=== PATIENT | female | born 1985 | race American Indian/Alaskan Native ===

== ENCOUNTER 2018-10-30 00:55 | Emergency (ER) | payer MEDICAID, OTHER ==
[2018-10-30 01:37] LABS: Bilirubin,Urine NEG (Negative); Blood,Urine NEG (Negative); Color,Urine Yellow (Yellow); Mucus,Urine FEW /HPF; Protein,Urine <15 mg/dL mg/dL (Negative); Urobilinogen,Urine < 2.0 mg/dL (<2.0)
[2018-10-30 01:49] LABS: Hematocrit 38.3 % (30.3-42.9); Hemoglobin 12.7 gm/dl (10.1-14.3); Mean Corpuscular HGB Conc 33 % (30-34); Mean Corpuscular Volume 94 fl (79-97); Platelet Count 175 K/mm3 (140-440); Red Blood Count 4.07 M/mm3 (3.65-5.03); Red Cell Distribution Width 14.5 % (13.2-15.2)
[2018-10-30 02:12] LABS: Alanine Aminotransferase 19 units/L (7-56); Albumin 4.1 g/dL (3.9-5); BUN/Creatinine Ratio 14; Blood Urea Nitrogen 7 mg/dL (7-17); Calcium 8.6 mg/dL (8.4-10.2); Hemolysis Index 33
[2018-10-30] MEDS ORDERED: DECADRON IM ONE (02:46)
[2018-10-30] MEDS ORDERED: REGLAN PO ONE (02:46)
[2018-10-30] MEDS ORDERED: TYLENOL PO ONE (02:46)
[2018-10-30] MEDS ORDERED: BENADRYL PO ONE (02:46)
--- NOTE | 2018-10-30 03:03 | Emergency Department Report ---
ED General Adult HPI - General Chief complaint: Abdominal Pain Stated complaint: LEFT SIDE PAIN Time Seen by Provider: 10/30/18 02:19 Source: patient Mode of arrival: Ambulatory Limitations: No Limitations - History of Present Illness Initial comments: Patient is a 33-year-old female who presents for a left temporal headache rated at 6/10 patient has history of frequent headaches in location same intensity patient denies fevers no chills no nausea vomiting no photophobia having intermittent for the last 3 days patient presented to triage abdominal pain and now states she has headache no abdominal pain plan we'll treat for headache and evaluation including neuro exam and dispo pt appropriately Onset/Timin -: days(s) Location: head (left temporal ) Radiation: non-radiation Severity scale (0 -10): 6 Quality: aching Consistency: constant Improves with: none Worsens with: none Associated Symptoms: headaches Treatments Prior to Arrival: none - Related Data Previous Rx's Medication Instructions Recorded Last Taken Type Cyclobenzaprine HCl [Flexeril 5 MG 5 mg PO TID #20 tab 12/11/15 Unknown Rx TAB] Ibuprofen [Motrin 800 MG tab] 800 mg PO Q8HR PRN #30 tablet 12/11/15 Unknown Rx Acetaminophen/Codeine [Tylenol 1 tab PO TID PRN #15 tab 01/16/16 Unknown Rx /Codeine # 3 tab] Ofloxacin 0.3% [Floxin 0.3% Otic] 10 drops OT QDAY #1 bottle 01/16/16 Unknown Rx Acetaminophen [Acetaminophen TAB] 1,000 mg PO Q6HR PRN #30 tablet 10/30/18 Unknown Rx Metoclopramide [Reglan] 10 mg PO Q6H PRN #30 tablet 10/30/18 Unknown Rx diphenhydrAMINE [Benadryl CAP] 25 mg PO Q6HR PRN #30 capsule 10/30/18 Unknown Rx Allergies Allergy/AdvReac Type Severity Reaction Status Date / Time No Known Allergies Allergy Verified 12/11/15 08:10 ED Review of Systems ROS: Stated complaint: LEFT SIDE PAIN Other details as noted in HPI Constitutional: denies: chills, fever Eyes: denies: eye pain, eye discharge, vision change ENT: denies: ear pain, throat pain, dental pain, hearing loss, epistaxis, congestion Respiratory: denies: cough, shortness of breath, wheezing Cardiovascular: denies: chest pain, palpitations Endocrine: no symptoms reported Gastrointestinal: denies: abdominal pain, nausea, diarrhea Genitourinary: denies: urgency, dysuria, frequency, hematuria, discharge Musculoskeletal: denies: back pain, joint swelling, arthralgia Skin: denies: rash, lesions Neurological: headache. denies: weakness, numbness, paresthesias, confusion, abnormal gait, vertigo Psychiatric: denies: anxiety, depression Hematological/Lymphatic: denies: easy bleeding, easy bruising ED Past Medical Hx - Past Medical History Previous Medical History?: Yes Additional medical history: unable to speak as per pt - Surgical History Past Surgical History?: Yes Additional Surgical History: x 4 - Social History Smoking Status: Never Smoker Substance Use Type: None - Medications Home Medications: Home Medications Medication Instructions Recorded Confirmed Last Taken Type Cyclobenzaprine HCl [Flexeril 5 MG 5 mg PO TID #20 tab 12/11/15 Unknown Rx TAB] Ibuprofen [Motrin 800 MG tab] 800 mg PO Q8HR PRN #30 tablet 12/11/15 Unknown Rx Acetaminophen/Codeine [Tylenol 1 tab PO TID PRN #15 tab 01/16/16 Unknown Rx /Codeine # 3 tab] Ofloxacin 0.3% [Floxin 0.3% Otic] 10 drops OT QDAY #1 bottle 01/16/16 Unknown Rx Acetaminophen [Acetaminophen TAB] 1,000 mg PO Q6HR PRN #30 tablet 10/30/18 Unknown Rx Metoclopramide [Reglan] 10 mg PO Q6H PRN #30 tablet 10/30/18 Unknown Rx diphenhydrAMINE [Benadryl CAP] 25 mg PO Q6HR PRN #30 capsule 10/30/18 Unknown Rx ED Physical Exam - General Limitations: No Limitations General appearance: alert, in no apparent distress - Head Head exam: Present: atraumatic, normocephalic - Eye Eye exam: Present: normal appearance, PERRL, EOMI. Absent: conjunctival injection, nystagmus, periorbital swelling, periorbital tenderness Pupils: Present: normal accommodation. Absent: unequal - ENT ENT exam: Present: normal orophraynx, mucous membranes moist, TM's normal bilaterally, normal external ear exam - Neck Neck exam: Present: normal inspection - Respiratory Respiratory exam: Present: normal lung sounds bilaterally. Absent: respiratory distress, wheezes, stridor - Cardiovascular Cardiovascular Exam: Present: regular rate, normal rhythm. Absent: systolic murmur, diastolic murmur, rubs, gallop - GI/Abdominal GI/Abdominal exam: Present: soft, normal bowel sounds. Absent: distended, tenderness, bruit, hernia - Rectal Rectal exam: Present: deferred - Extremities Exam Extremities exam: Present: normal inspection, full ROM, normal capillary refill. Absent: tenderness, pedal edema, joint swelling, calf tenderness - Back Exam Back exam: Present: normal inspection, full ROM. Absent: tenderness, CVA tenderness (R), CVA tenderness (L), muscle spasm, paraspinal tenderness, vertebral tenderness, rash noted - Neurological Exam Neurological exam: Present: alert, oriented X3, CN II-XII intact, normal gait, reflexes normal. Absent: motor sensory deficit - Expanded Neurological Exam Expanded Patient oriented to: Present: person, place, time Cranial nerves: EOM's Intact: Normal, Gag Reflex: Normal, Tongue Deviation: Normal, Nystagmus: Normal, Facial Sensation: Normal Cerebellar function: Finger to Nose: Normal, Heel to Galvan: Normal, Romberg: Normal Upper motor neuron: Jad Neglect: Normal, Pronator Drift: Normal, Babinski Sign: Normal, Sensory Extinction: Normal Motor strength exam: RUE: 5, LUE: 5, RLE: 5, LLE: 5 DTR: bicep (R): 2+, bicep (L): 2+, ankle (R): 2+, ankle (L): 2+ Best Eye Response (Maddy): (4) open spontaneously Best Motor Response ([place]): (6) obeys commands Best Verbal Response (Maddy): (5) oriented [place] Total: 15 - Psychiatric Psychiatric exam: Present: normal affect, normal mood - Skin Skin exam: Present: warm, dry, intact, normal color. Absent: rash ED Course Vital Signs 10/30/18 01:02 Temperature 99.0 F Pulse Rate 84 Respiratory 18 Rate Blood Pressure 137/87 O2 Sat by Pulse 100 Oximetry ED Medical Decision Making - Lab Data Result diagrams: 10/30/18 01:18 10/30/18 01:18 Lab Results 10/30/18 10/30/18 10/30/18 Range/Units 01:18 01:18 01:18 WBC 4.0 L (4.5-11.0) K/mm3 RBC 4.07 (3.65-5.03) M/mm3 Hgb 12.7 (10.1-14.3) gm/dl Hct 38.3 (30.3-42.9) % MCV 94 (79-97) fl MCH 31 (28-32) pg MCHC 33 (30-34) % RDW 14.5 (13.2-15.2) % Plt Count 175 (140-440) K/mm3 Sodium 135 L (137-145) mmol/L Potassium 4.1 (3.6-5.0) mmol/L Chloride 101.3 (98-107) mmol/L Carbon Dioxide 22 (22-30) mmol/L Anion Gap 16 mmol/L BUN 7 (7-17) mg/dL Creatinine 0.5 L (0.7-1.2) mg/dL Estimated GFR > 60 ml/min BUN/Creatinine Ratio 14 % Glucose 125 H (65-100) mg/dL Calcium 8.6 (8.4-10.2) mg/dL Total Bilirubin 0.40 (0.1-1.2) mg/dL AST 15 (5-40) units/L ALT 19 (7-56) units/L Alkaline Phosphatase 49 (35-129) units/L Total Protein 7.4 (6.3-8.2) g/dL Albumin 4.1 (3.9-5) g/dL Albumin/Globulin Ratio 1.2 % HCG, Qual Negative (Negative) Urine Color (Yellow) Urine Turbidity (Clear) Urine pH (5.0-7.0) Ur Specific [place] (1.003-1.030) Urine Protein (Negative) mg/dL Urine Glucose (UA) (Negative) mg/dL Urine Ketones (Negative) mg/dL Urine Blood (Negative) Urine Nitrite (Negative) Urine Bilirubin (Negative) Urine Urobilinogen (<2.0) mg/dL Ur Leukocyte Esterase (Negative) Urine WBC (Auto) (0.0-6.0) /HPF Urine RBC (Auto) (0.0-6.0) /HPF U Epithel Cells (Auto) (0-13.0) /HPF Urine Mucus /HPF 10/30/18 Range/Units Unknown WBC (4.5-11.0) K/mm3 RBC (3.65-5.03) M/mm3 Hgb (10.1-14.3) gm/dl Hct (30.3-42.9) % MCV (79-97) fl MCH (28-32) pg MCHC (30-34) % RDW (13.2-15.2) % Plt Count (140-440) K/mm3 Sodium (137-145) mmol/L Potassium (3.6-5.0) mmol/L Chloride (98-107) mmol/L Carbon Dioxide (22-30) mmol/L Anion Gap mmol/L BUN (7-17) mg/dL Creatinine (0.7-1.2) mg/dL Estimated GFR ml/min BUN/Creatinine Ratio % Glucose (65-100) mg/dL Calcium (8.4-10.2) mg/dL Total Bilirubin (0.1-1.2) mg/dL AST (5-40) units/L ALT (7-56) units/L Alkaline Phosphatase (35-129) units/L Total Protein (6.3-8.2) g/dL Albumin (3.9-5) g/dL Albumin/Globulin Ratio % HCG, Qual (Negative) Urine Color Yellow (Yellow) Urine Turbidity Clear (Clear) Urine pH 5.0 (5.0-7.0) Ur Specific [place] 1.030 (1.003-1.030) Urine Protein <15 mg/dl (Negative) mg/dL Urine Glucose (UA) Neg (Negative) mg/dL Urine Ketones Neg (Negative) mg/dL Urine Blood Neg (Negative) Urine Nitrite Neg (Negative) Urine Bilirubin Neg (Negative) Urine Urobilinogen < 2.0 (<2.0) mg/dL Ur Leukocyte Esterase Neg (Negative) Urine WBC (Auto) 1.0 (0.0-6.0) /HPF Urine RBC (Auto) 1.0 (0.0-6.0) /HPF U Epithel Cells (Auto) 8.0 (0-13.0) /HPF Urine Mucus Few /HPF - Medical Decision Making Headache is improved to 2/10 from 09/28 plan DC to home with prescription for Tylenol Benadryl Reglan patient will follow with PCP in 2-3 days return to emergency room should symptoms worsen patient verbalizes agreement and understanding of discharge plan DC to home in stable condition at this time, pt is a/o x 3 ambulatory with steady gait pt with nad at this time. Critical care attestation.: If time is entered above; I have spent that time in minutes in the direct care of this critically ill patient, excluding procedure time. ED Disposition Clinical Impression: Headache Qualifiers: Headache type: unspecified Headache chronicity pattern: acute headache Intractability: not intractable Qualified Code(s): R51 - Headache Disposition: DC-01 TO HOME OR SELFCARE Is pt being admited?: No Does the pt Need Aspirin: No Condition: Stable Instructions: Acute Headache (ED) Prescriptions: Acetaminophen [Acetaminophen TAB] 1,000 mg PO Q6HR PRN #30 tablet PRN Reason: Headache diphenhydrAMINE [Benadryl CAP] 25 mg PO Q6HR PRN #30 capsule PRN Reason: Headache Metoclopramide [Reglan] 10 mg PO Q6H PRN #30 tablet PRN Reason: Headache Referrals: [facility] [Outside] - 3-5 Days JAVIER RENDON MD [Referring] - 3-5 Days Forms: Work/School Release Form(ED) Time of Disposition: 03:10
[2018-10-30 03:56] LABS: Anisocytosis 1+; Large Platelets 1+; Ovalocytes 1+; Platelet Estimate Consistent w Auto; Total Cells Counted 100
[2018-10-30 06:06] VITALS: BP 137/88
== END 2018-10-30 04:25 | disposition home or self-care (01) ==
LOC: ED 00:55
DX: R51 Headache (principal); Z79.1 Long term (current) use of non-steroidal anti-inflammatories (NSAID); Z79.899 Other long term (current) drug therapy
CPT/HCPCS: 36415; 80053; 81001; 84703; 85007; 85025; 96372; 99283; J1100

== ENCOUNTER 2018-10-31 06:38 | Emergency (ER) | payer MEDICAID ==
[2018-10-31] MEDS ORDERED: TORADOL IM ONE (09:04)
[2018-10-31] MEDS ORDERED: DECADRON IM ONE (09:09)
--- NOTE | 2018-10-31 10:11 | Emergency Department Report ---
ED General Adult HPI - General Chief complaint: Headache Stated complaint: LEFT SIDE FACIAL PAIN Time Seen by Provider: 10/31/18 07:03 Source: patient Mode of arrival: Ambulatory Limitations: No Limitations - History of Present Illness Initial comments: 33-year-old -[place] female presents to the emergency room for left face pain since October 29. Patient denies any trauma. Patient was seen here yesterday for the same issue. Patient was prescribed medications but has only taken one dose. Patient denies any nausea vomiting she denies any trauma denies any bad teeth. Patient has a past medical history inability to speak per patient. Patient reports that this been going on for about 8 years she has been followed by a ear nose and throat provider for this. Patient has a surgical history of 4 C-sections. Location: face (left side) Severity scale (0 -10): 8 Quality: burning, aching Consistency: constant Improves with: none Worsens with: none Associated Symptoms: headaches Treatments Prior to Arrival: none - Related Data Previous Rx's Medication Instructions Recorded Last Taken Type Cyclobenzaprine HCl [Flexeril 5 MG 5 mg PO TID #20 tab 12/11/15 Unknown Rx TAB] Ibuprofen [Motrin 800 MG tab] 800 mg PO Q8HR PRN #30 tablet 12/11/15 Unknown Rx Acetaminophen/Codeine [Tylenol 1 tab PO TID PRN #15 tab 01/16/16 Unknown Rx /Codeine # 3 tab] Ofloxacin 0.3% [Floxin 0.3% Otic] 10 drops OT QDAY #1 bottle 01/16/16 Unknown Rx Acetaminophen [Acetaminophen TAB] 1,000 mg PO Q6HR PRN #30 tablet 10/30/18 Unknown Rx Metoclopramide [Reglan] 10 mg PO Q6H PRN #30 tablet 10/30/18 Unknown Rx diphenhydrAMINE [Benadryl CAP] 25 mg PO Q6HR PRN #30 capsule 10/30/18 Unknown Rx Allergies Allergy/AdvReac Type Severity Reaction Status Date / Time No Known Allergies Allergy Verified 12/11/15 08:10 ED Review of Systems ROS: Stated complaint: LEFT SIDE FACIAL PAIN Other details as noted in HPI Comment: All other systems reviewed and negative ED Past Medical Hx - Past Medical History Previous Medical History?: Yes Additional medical history: unable to speak as per pt - Surgical History Past Surgical History?: Yes Additional Surgical History: x 4 - Social History Smoking Status: Never Smoker Substance Use Type: None - Medications Home Medications: Home Medications Medication Instructions Recorded Confirmed Last Taken Type Cyclobenzaprine HCl [Flexeril 5 MG 5 mg PO TID #20 tab 12/11/15 Unknown Rx TAB] Ibuprofen [Motrin 800 MG tab] 800 mg PO Q8HR PRN #30 tablet 12/11/15 Unknown Rx Acetaminophen/Codeine [Tylenol 1 tab PO TID PRN #15 tab 01/16/16 Unknown Rx /Codeine # 3 tab] Ofloxacin 0.3% [Floxin 0.3% Otic] 10 drops OT QDAY #1 bottle 01/16/16 Unknown Rx Acetaminophen [Acetaminophen TAB] 1,000 mg PO Q6HR PRN #30 tablet 10/30/18 Unknown Rx Metoclopramide [Reglan] 10 mg PO Q6H PRN #30 tablet 10/30/18 Unknown Rx diphenhydrAMINE [Benadryl CAP] 25 mg PO Q6HR PRN #30 capsule 10/30/18 Unknown Rx ED Physical Exam - General Limitations: No Limitations General appearance: alert, in no apparent distress - Head Head exam: Present: atraumatic, other (left temporal tenderness) - ENT ENT exam: Present: normal orophraynx, mucous membranes moist - Neck Neck exam: Present: tenderness, full ROM. Absent: lymphadenopathy - Respiratory Respiratory exam: Present: normal lung sounds bilaterally. Absent: respiratory distress - Cardiovascular Cardiovascular Exam: Present: regular rate, normal rhythm. Absent: systolic murmur, diastolic murmur, rubs, gallop - Expanded Neurological Exam Expanded Speech: Present: total aphasia (chronic) Cranial nerves: EOM's Intact: Normal, Gag Reflex: Normal, Tongue Deviation: Normal, Nystagmus: Normal, Facial Sensation: Normal, Facial Palsy with Forehead Movement: Normal, Facial Palsy without Forehead Movement: Normal Cerebellar function: Finger to Nose: Normal, Heel to Galvan: Normal, Romberg: Normal Upper motor neuron: Jad Neglect: Normal, Pronator Drift: Normal, Babinski Sign: Normal, Sensory Extinction: Normal Sensory exam: Upper Extremity Light Touch: Normal, Upper Extremity Pin Prick: Normal, Upper Extremity Temperature: Normal, UE 2 Point Discrimination: Normal, Lower Extremity Light Touch: Normal, Lower Extremity Pin Prick: Normal, Lower Extremity Temperature: Normal, LE 2 Point Discrimination: Normal Motor strength exam: RUE: 5, LUE: 2/1, RLE: 5, LLE: 5 Best Eye Response ([place]addy): (4) open spontaneously Best Motor Response ([place]): (6) obeys commands Best Verbal Response (Maddy): (5) oriented [place] Total: 15 - Psychiatric Psychiatric exam: Present: normal affect, normal mood - Skin Skin exam: Present: warm, dry, intact, normal color. Absent: rash ED Course Vital Signs 10/31/18 06:48 Temperature 99 F Pulse Rate 98 H Respiratory 16 Rate Blood Pressure 131/95 O2 Sat by Pulse 98 Oximetry ED Medical Decision Making - Radiology Data Radiology results: report reviewed Patient: BERNADETTE LONG MR#: [id number] : 1985 Acct:[id number] Age/Sex: 33 / F ADM Date: 10/31/18 Loc: ED Attending Dr: Ordering Physician: JESSICA CASTILLO Date of Service: 10/31/18 Procedure(s): CT head/brain wo/w con Accession Number(s): [id number] cc: JESSICA CASTILLO CT head with and without IV contrast Coronal history: Headache. FINDINGS: No previous exams available for comparison. The brain demonstrate appropriate attenuation. There is mild asymmetry of the lateral ventricles which is felt to be developmental. No obstructing lesions are identified. There is no CT evidence of acute intracranial hemorrhage or significant mass effect at. No intracranial enhancing lesions are appreciated. The paranasal sinuses are clear. All CT scans at this location are performed using the CT dose reduction for ALARA by means of automated exposure control. IMPRESSION: Pre and postcontrast CT reveals no evidence of acute intracranial process. Signer Name: Elkin Lovell MD Signed: 10/31/2018 3:01 PM Workstation Name: [id number] Transcribed By: MR Dictated By: Elkin Lovell MD Electronically Authenticated By: Elkin Lovell MD Signed Date/Time: 10/31/18 1505 DD/ 1445 TD/TT: Patient: BERNADETTE LONG MR#: [id number] : 1985 Acct:[id number] Age/Sex: 33 / F ADM Date: 10/31/18 Loc: ED Attending Dr: Ordering Physician: JESSICA CASTILLO Date of Service: 10/31/18 Procedure(s): CT neck w con Accession Number(s): [id number] cc: JESSICA CASTILLO CT NECK WITH CONTRAST HISTORY: Left neck pain, left facial pain TECHNIQUE: Helical CT following 100 cc of IV contrast. Sagittal and coronal reformatted images. Radiation reduction by automated exposure control. COMPARISON: None. FINDINGS: The thyroid gland and salivary glands are symmetric and unremarkable. Laryngeal structures are within normal limits. Paravertebral soft tissues are normal. No evidence for inflammation, fluid collection or adenopathy. Normal vascular structures. The imaged brain is unremarkable. The bony structures are intact. The lung apices are clear. A left posterior maxillary molar dental tianna is identified. There is also periapical lucency surrounding a right maxillary molar tooth roots. Facial soft tissues are unremarkable. IMPRESSION: Essentially unremarkable CT neck with contrast. Poor dentition as described. Signer Name: Parveen Hardin Jr, MD Signed: 10/31/2018 2:59 PM Workstation Name: [id number] Transcribed By: TTR Dictated By: PARVEEN HARDIN JR, MD Electronically Authenticated By: PARVEEN HARDIN JR, MD Signed Date/Time: 10/31/181458 DD/ 51 TD/TT: - Medical Decision Making 33-year-old -[place] female presents to the emergency room for left face pain since October 29. Patient denies any trauma. Patient was seen here yesterday for the same issue. Patient was prescribed medications but has only taken one dose. Patient denies any nausea vomiting she denies any trauma denies any bad teeth. Patient has a past medical history inability to speak per patient. Patient reports that this been going on for about 8 months she has been followed by a ear nose and throat provider for this. Patient has a surgical history of 4 C-sections. Patient was evaluated by ER attending Dr. Shai Lloyd. We decided to do a ESR to rule out temporal arteritis. Patient was given Toradol 30 mg IM and dexamethasone 10 mg IM for management. Awaiting lab studies. ESR is 9 with is within normal limits. Critical care attestation.: If time is entered above; I have spent that time in minutes in the direct care of this critically ill patient, excluding procedure time. ED Disposition Clinical Impression: Trigeminal neuralgia of left side of face Disposition: DC- TO HOME OR SELFCARE Is pt being admited?: No Does the pt Need Aspirin: No Condition: Stable Instructions: Trigeminal Neuralgia (ED) Additional Instructions: Please follow up with neurology in ear nose and throat I have listed their information below. He can take ibuprofen or Tylenol as needed for pain management. Both CAT scans/CTs are negative for any acute abnormalities. [facility] [Primary Care Provider] - 3-5 Days JAVIER RENDON MD [Referring] - 3-5 Days MANDI TEJADA MD [Staff Physician] - 3-5 Days
--- NOTE | 2018-10-31 15:03 | Cat Scan Report ---
CT NECK WITH CONTRAST HISTORY: Left neck pain, left facial pain TECHNIQUE: Helical CT following 100 cc of IV contrast. Sagittal and coronal reformatted images. Radia tion reduction by automated exposure control. COMPARISON: None. FINDINGS: The thyroid gland and salivary glands are symmetric and unremarkable. Laryngeal structures are within normal limits. Paravertebral soft tissues are normal. No evidence for inflammation, fluid collection or adenopathy. Normal vascular structures. The imaged brain is unremarkable. The bony structures are intact. The lung apices are clear. A left posterior maxillary molar dental tianna is identified. There is also periapical lucency surround ing a right maxillary molar tooth roots. Facial soft tissues are unremarkable. IMPRESSION: Essentially unremarkable CT neck with contrast. Poor dentition as described. Signer Name: Parveen Hardin Jr, MD Signed: 10/31/2018 2:59 PM Workstation Name: [id number]
--- NOTE | 2018-10-31 15:05 | Cat Scan Report ---
CT head with and without IV contrast Coronal history: Headache. FINDINGS: No previous exams available for comparison. The brain demonstrate appropriate attenuation. There is mild asymmetry of the lateral ventricles which is felt to be developmental. No obstructing l esions are identified. There is no CT evidence of acute intracranial hemorrhage or significant mass e ffect at. No intracranial enhancing lesions are appreciated. The paranasal sinuses are clear. All CT scans at this location are performed using the CT dose reduction for ALARA by means of automated expo sure control. IMPRESSION: Pre and postcontrast CT reveals no evidence of acute intracranial process. Signer Name: Elkin Lovell MD Signed: 10/31/2018 3:01 PM Workstation Name: [email or web address]
[2018-10-31 15:54] VITALS: BP 123/85
== END 2018-10-31 15:53 | disposition home or self-care (01) ==
LOC: ED 06:38
DX: G50.0 Trigeminal neuralgia (principal); Z79.899 Other long term (current) drug therapy
CPT/HCPCS: 36415; 70470; 70491; 85652; 96372; 99284; J1100; J1885; Q9967

== ENCOUNTER 2019-04-05 20:29 | Emergency (ER) | payer MEDICAID ==
--- NOTE | 2019-04-05 21:14 | Emergency Department Report ---
Blank Doc - Documentation Documentation: 33-year-old female that presents with unable to have a bowel movement. This initial assessment/diagnostic orders/clinical plan/treatment(s) is/are subject to change based on patient's health status, clinical progression and re- assessment by fellow clinical providers in the ED. Further treatment and workup at subsequent clinical providers discretion. Patient/guardians urged not to elope from the ED as their condition may be serious if not clinically assessed and managed. Initial orders include: 1- Patient sent to [facility] for further evaluation and treatment 2- xrays
--- NOTE | 2019-04-05 21:46 | XRay Report ---
XR abd series w cxr 1V INDICATION / CLINICAL INFORMATION: Constipation, abdominal pain. COMPARISON: None available. FINDINGS: TUBES / LINES: None. BOWEL GAS PATTERN: No significant abnormality. FREE AIR / EXTRALUMINAL GAS: None seen. LUNGS: Visualized lungs show no significant abnormality. HEART / MEDIASTINUM: No significant abnormality. The patient may have previously undergone tubal ligation. IMPRESSION: No significant abnormality. Signer Name: Redd Nevarez MD Signed: 04/05/2019 9:41 PM Workstation Name: [id number]
--- NOTE | 2019-04-05 23:53 | Emergency Department Report ---
ED Abdominal Pain HPI - General Chief Complaint: Abdominal Pain Stated Complaint: CONSTIPATED Time Seen by Provider: 04/05/19 21:12 Source: patient, family Mode of arrival: Ambulatory Limitations: Physical Limitation - History of Present Illness Initial Comments: Patient is mute, history given by patient's significant other and patient is able to respond by shaking her head yes and no and able to give parts of the HPI Patient is a 33-year-old female presents emergency room with complaints of constipation that began a week ago. Patient used a suppository today and was able to have one small hard bowel movement. She states that she hasn't had a no rmal bowel movement a week. Patient states that today she began having left lower quadrant abdominal pain. She denies any nausea, vomiting, diarrhea, fever, urinary symptoms, hematochezia, melena. She denies any past medical history or allergies medications. She states her last menstrual cycle was 3 months ago. - Related Data Previous Rx's Medication Instructions Recorded Last Taken Type Cyclobenzaprine HCl [Flexeril 5 MG 5 mg PO TID #20 tab 12/11/15 Unknown Rx TAB] Ibuprofen [Motrin 800 MG tab] 800 mg PO Q8HR PRN #30 tablet 12/11/15 Unknown Rx Acetaminophen/Codeine [Tylenol 1 tab PO TID PRN #15 tab 01/16/16 Unknown Rx /Codeine # 3 tab] Ofloxacin 0.3% [Floxin 0.3% Otic] 10 drops OT QDAY #1 bottle 01/16/16 Unknown Rx Acetaminophen [Acetaminophen TAB] 1,000 mg PO Q6HR PRN #30 tablet 10/30/18 Unknown Rx Metoclopramide [Reglan] 10 mg PO Q6H PRN #30 tablet 10/30/18 Unknown Rx diphenhydrAMINE [Benadryl CAP] 25 mg PO Q6HR PRN #30 capsule 10/30/18 Unknown Rx Docusate Sodium [Colace] 100 mg PO BID PRN #20 capsule 04/06/19 Unknown Rx Polyethylene Glycol 3350 [Miralax] 7 gm PO DAILY PRN #1 powder 04/06/19 Unknown Rx Allergies Allergy/AdvReac Type Severity Reaction Status Date / Time No Known Allergies Allergy Verified 12/11/15 08:10 ED Review of Systems ROS: Stated complaint: CONSTIPATED Other details as noted in HPI Comment: All other systems reviewed and negative ED Past Medical Hx - Past Medical History Additional medical history: unable to speak as per pt - Surgical History Additional Surgical History: x 4 - Social History Smoking Status: Never Smoker Substance Use Type: None - Medications Home Medications: Home Medications Medication Instructions Recorded Confirmed Last Taken Type Cyclobenzaprine HCl [Flexeril 5 MG 5 mg PO TID #20 tab 12/11/15 Unknown Rx TAB] Ibuprofen [Motrin 800 MG tab] 800 mg PO Q8HR PRN #30 tablet 12/11/15 Unknown Rx Acetaminophen/Codeine [Tylenol 1 tab PO TID PRN #15 tab 01/16/16 Unknown Rx /Codeine # 3 tab] Ofloxacin 0.3% [Floxin 0.3% Otic] 10 drops OT QDAY #1 bottle 01/16/16 Unknown Rx Acetaminophen [Acetaminophen TAB] 1,000 mg PO Q6HR PRN #30 tablet 10/30/18 Unknown Rx Metoclopramide [Reglan] 10 mg PO Q6H PRN #30 tablet 10/30/18 Unknown Rx diphenhydrAMINE [Benadryl CAP] 25 mg PO Q6HR PRN #30 capsule 10/30/18 Unknown Rx Docusate Sodium [Colace] 100 mg PO BID PRN #20 capsule 04/06/19 Unknown Rx Polyethylene Glycol 3350 [Miralax] 7 gm PO DAILY PRN #1 powder 04/06/19 Unknown Rx ED Physical Exam - General Limitations: No Limitations General appearance: alert, in no apparent distress - Head Head exam: Present: atraumatic, normocephalic - Eye Eye exam: Present: normal appearance - ENT ENT exam: Present: mucous membranes moist - Respiratory Respiratory exam: Present: normal lung sounds bilaterally. Absent: respiratory distress, wheezes, rales, rhonchi, stridor, chest wall tenderness, accessory muscle use, decreased breath sounds, prolonged expiratory - Cardiovascular Cardiovascular Exam: Present: regular rate, normal rhythm, normal heart sounds. Absent: systolic murmur, diastolic murmur, rubs, gallop - GI/Abdominal GI/Abdominal exam: Present: soft, tenderness (LLQ), normal bowel sounds. Absent: distended, guarding, rebound, rigid - Back Exam Back exam: Absent: CVA tenderness (R), CVA tenderness (L) - Neurological Exam Neurological exam: Present: alert, oriented X3 - Psychiatric Psychiatric exam: Present: normal affect, normal mood - Skin Skin exam: Present: warm, dry, intact ED Course Vital Signs 04/05/19 04/06/19 20:37 04:33 Temperature 98.6 F 98.8 F Pulse Rate 103 H 90 Respiratory 18 16 Rate Blood Pressure 122/76 Blood Pressure 131/83 [Left] O2 Sat by Pulse 98 99 Oximetry ED Medical Decision Making - Lab Data Result diagrams: 04/05/19 23:45 04/05/19 23:45 Lab Results 04/05/19 04/05/19 04/05/19 Range/Units 23:44 23:45 23:45 WBC 5.1 (4.5-11.0) K/mm3 RBC 3.93 (3.65-5.03) M/mm3 Hgb 12.1 (10.1-14.3) gm/dl Hct 36.7 (30.3-42.9) % MCV 94 (79-97) fl MCH 31 (28-32) pg MCHC 33 (30-34) % RDW 14.1 (13.2-15.2) % Plt Count 198 (140-440) K/mm3 Lymph % (Auto) 42.3 H (13.4-35.0) % Rincon % (Auto) 13.7 H (0.0-7.3) % Eos % (Auto) 1.8 (0.0-4.3) % Baso % (Auto) 0.4 (0.0-1.8) % Lymph # 2.1 (1.2-5.4) K/mm3 [place] # 0.7 (0.0-0.8) K/mm3 Eos # 0.1 (0.0-0.4) K/mm3 Baso # 0.0 (0.0-0.1) K/mm3 Seg Neutrophils % 41.8 (40.0-70.0) % Seg Neutrophils # 2.1 (1.8-7.7) K/mm3 Sodium 139 (137-145) mmol/L Potassium 4.3 (3.6-5.0) mmol/L Chloride 102.8 (98-107) mmol/L Carbon Dioxide 23 (22-30) mmol/L Anion Gap 18 mmol/L BUN 10 (7-17) mg/dL Creatinine 0.5 L (0.7-1.2) mg/dL Estimated GFR > 60 ml/min BUN/Creatinine Ratio 20 % Glucose 101 H (65-100) mg/dL Calcium 9.7 (8.4-10.2) mg/dL Total Bilirubin 0.30 (0.1-1.2) mg/dL AST 13 (5-40) units/L ALT 18 (7-56) units/L Alkaline Phosphatase 50 (35-129) units/L Total Protein 7.1 (6.3-8.2) g/dL Albumin 4.2 (3.9-5) g/dL Albumin/Globulin Ratio 1.4 % Lipase 16 (13-60) units/L Urine Color Yellow (Yellow) Urine Turbidity Cloudy (Clear) Urine pH 5.0 (5.0-7.0) Ur Specific Richardson 1.025 (1.003-1.030) Urine Protein 30 mg/dl (Negative) mg/dL Urine Glucose (UA) Neg (Negative) mg/dL Urine Ketones 20 (Negative) mg/dL Urine Blood Mod (Negative) Urine Nitrite Neg (Negative) Urine Bilirubin Neg (Negative) Urine Urobilinogen < 2.0 (<2.0) mg/dL Ur Leukocyte Esterase Neg (Negative) Urine WBC (Auto) 2.0 (0.0-6.0) /HPF Urine RBC (Auto) 6.0 (0.0-6.0) /HPF U Epithel Cells (Auto) 37.0 H (0-13.0) /HPF Urine Bacteria (Auto) 1+ (Negative) /HPF Urine Mucus 3+ /HPF Urine HCG, Qual Negative (Negative) - Radiology Data Radiology results: report reviewed XR abd series w cxr 1V INDICATION / CLINICAL INFORMATION: Constipation, abdominal pain. COMPARISON: None available. FINDINGS: TUBES / LINES: None. BOWEL GAS PATTERN: No significant abnormality. FREE AIR / EXTRALUMINAL GAS: None seen. LUNGS: Visualized lungs show no significant abnormality. HEART / MEDIASTINUM: No significant abnormality. The patient may have previously undergone tubal ligation. IMPRESSION: No significant abnormality. Signer Name: Redd Nevarez MD Signed: 04/05/2019 9:41 PM Workstation Name: [email or web address] Transcribed By: DERRICK Dictated By: Redd Nevarez MD Electronically Authenticated By: Redd Nevarez MD Signed Date/Time: 04/05/192140 DD/ 39 TD/TT: CT OF THE ABDOMEN AND PELVIS WITH INTRAVENOUS CONTRAST INDICATION / CLINICAL INFORMATION: Left lower quadrant pain. TECHNIQUE: The patient received 100 cc Omnipaque [address] scans at this location are performed using CT dose reduction for ALARA by means of automated exposure control. COMPARISON: None available. FINDINGS: ABDOMEN: The liver, spleen, gallbladder, bile ducts, pancreas, adrenal glands, kidneys and bowel demonstrate no significant abnormality. No adenopathy is seen. The lung bases are clear. PELVIS: There is prior bilateral tubal ligation. There is a 5 cm mass in the right adnexa containing fat and calcification. There is a 2 cm irregular cyst in the left ovary. The uterus is unremarkable. No free fluid is seen. The distal ureters and urinary bladder are normal. A normal appendix is present and there is no evidence of diverticulitis. I do not identify a hernia. No acute osseous abnormality is seen. IMPRESSION: 1. No acute intra-abdominal disease. 2. Incidental 5 cm right ovarian dermoid. Signer Name: Jordan Estrada MD Signed: 04/06/2019 3:17 AM Workstation Name: [id number] Transcribed By: RT Dictated By: Jordan Estrada MD Electronically Authenticated By: Jordan Estrada MD Signed Date/Time: 04/06/19316 DD/ 1 TD/TT: - Medical Decision Making Patient is mute, history given by patient's significant other and patient is able to respond by shaking her head yes and no and able to give parts of the HPI Patient is a 33-year-old female presents emergency room with complaints of constipation that began a week ago. Patient used a suppository today and was able to have one small hard bowel movement. She states that she hasn't had a normal bowel movement a week. Patient states that today she began having left lower quadrant abdominal pain. She denies any nausea, vomiting, diarrhea, fe winter, urinary symptoms, hematochezia, melena. She denies any past medical history or allergies medications. She states her last menstrual cycle was 3 months ago. initial vitals with mildly elevated HR which improved to normal on repeat. on exam: LLQ TTP. labs are normal. UA without evidence of UTI, contamination from epithelial cells. abdominal XR: No significant abnormality. CT abd pelvis: 1. No acute intra-abdominal disease. 2. Incidental 5 cm right ovarian dermoid. Discussed all findings patient and advised patient to please be seen by an [facility]. Given prescriptions for constipation. advised pt to Please take medication as prescribed. Please increase your water intake over the next several days. Please follow-up with a [facility] regarding the ovarian cysts. Please follow-up with a primary care doctor. Increase your fiber intake. Return to the emergency room immediately for any new or worsening symptoms. - Differential Diagnosis diverticulitis, colitis, UTI, TOA, constipation, gas pain, ovarian cyst Critical care attestation.: If time is entered above; I have spent that time in minutes in the direct care of this critically ill patient, excluding procedure time. ED Disposition Clinical Impression: Constipation Qualifiers: Constipation type: unspecified constipation type Qualified Code(s): K59.00 - Constipation, unspecified Ovarian cyst Qualifiers: Laterality: bilateral Qualified Code(s): N83.201 - Unspecified ovarian cyst, right side Disposition: TO HOME OR SELFCARE Is pt being admited?: No Does the pt Need Aspirin: No Condition: Stable Instructions: Ovarian Cyst (ED), Constipation (ED), High Fiber Diet (ED), Abdominal Pain (ED) Additional Instructions: Please take medication as prescribed. Please increase your water intake over the next several days. Please follow-up with a [facility] regarding the ovarian cysts. Please follow-up with a primary care doctor. Increase your fiber intake. Return to the emergency room immediately for any new or worsening symptoms. Prescriptions: Docusate Sodium [Colace] 100 mg PO BID PRN #20 capsule PRN Reason: constipation Polyethylene Glycol 3350 [Miralax] 7 gm PO DAILY PRN #1 powder PRN Reason: constipation Referrals: [facility] [Provider Group] - 2-3 Days [facility] [Provider Group] - 2-3 Days [facility] [Provider Group] - 2-3 Days [facility] [Outside] - 2-3 Days Time of Disposition: 03:51 Print Language: HUNGARIAN
[2019-04-06 00:10] LABS: Bacteria,Urine 1+ /HPF (Negative); Bilirubin,Urine NEG (Negative); Blood,Urine MOD (Negative); Color,Urine Yellow (Yellow); Mucus,Urine 3+ /HPF; Urobilinogen,Urine < 2.0 mg/dL (<2.0)
[2019-04-06 00:22] LABS: Basophils % (Auto) 0.4 % (0.0-1.8); Eosinophils # (Auto) 0.1 K/mm3 (0.0-0.4); Eosinophils % (Auto) 1.8 % (0.0-4.3); Hematocrit 36.7 % (30.3-42.9); Hemoglobin 12.1 gm/dl (10.1-14.3); Lymphocytes # (Auto) 2.1 K/mm3 (1.2-5.4); Lymphocytes % (Auto) 42.3 % (13.4-35.0); Mean Corpuscular HGB Conc 33 % (30-34); Mean Corpuscular Volume 94 fl (79-97); Monocytes # (Auto) 0.7 K/mm3 (0.0-0.8); Monocytes % (Auto) 13.7 % (0.0-7.3); Platelet Count 198 K/mm3 (140-440); Red Blood Count 3.93 M/mm3 (3.65-5.03); Red Cell Distribution Width 14.1 % (13.2-15.2)
[2019-04-06 00:29] LABS: HCG Qualitative,Urine Negative (Negative)
[2019-04-06 00:46] LABS: Alanine Aminotransferase 18 units/L (7-56); Albumin 4.2 g/dL (3.9-5); BUN/Creatinine Ratio 20; Blood Urea Nitrogen 10 mg/dL (7-17); Calcium 9.7 mg/dL (8.4-10.2); Hemolysis Index 7
[2019-04-06] MEDS ORDERED: SODIUM CHLORIDE 0.9% 1000 ML 1,000 ML IV ONE (02:30)
[2019-04-06] MEDS ORDERED: MORPHINE 4 MG/1 ML INJ IV ONE (02:30)
[2019-04-06] MEDS ORDERED: ONDANSETRON 4 MG/2 ML INJ IV ONE (02:30)
--- NOTE | 2019-04-06 03:22 | Cat Scan Report ---
CT OF THE ABDOMEN AND PELVIS WITH INTRAVENOUS CONTRAST INDICATION / CLINICAL INFORMATION: Left lower quadrant pain. TECHNIQUE: The patient received 100 cc Omnipaque [address] scans at this location are performed using CT dose reduction for ALARA by means of automated exposure control. COMPARISON: None available. FINDINGS: ABDOMEN: The liver, spleen, gallbladder, bile ducts, pancreas, adrenal glands, kidneys and bowel demo nstrate no significant abnormality. No adenopathy is seen. The lung bases are clear. PELVIS: There is prior bilateral tubal ligation. There is a 5 cm mass in the right adnexa containing fat and calcification. There is a 2 cm irregular cyst in the left ovary. The uterus is unremarkable. No free fluid is seen. The distal ureters and urinary bladder are normal. A normal appendix is present and there is no evide nce of diverticulitis. I do not identify a hernia. No acute osseous abnormality is seen. IMPRESSION: 1. No acute intra-abdominal disease. 2. Incidental 5 cm right ovarian dermoid. Signer Name: Jordan Estrada MD Signed: 04/06/2019 3:17 AM Workstation Name: [email or web address]
[2019-04-06 04:33] VITALS: BP 131/83
== END 2019-04-06 04:33 | disposition home or self-care (01) ==
LOC: ED 20:29
DX: N83.201 Unspecified ovarian cyst, right side (principal); K59.00 Constipation, unspecified; Z79.899 Other long term (current) drug therapy
CPT/HCPCS: 36415; 74022; 74177; 80053; 81001; 81025; 83690; 85025; 96374; 96375; 99284; J2270; J2405; J7030; Q9967

== ENCOUNTER 2021-02-23 15:14 | Emergency (ER) | payer OTHER, MEDICAID ==
[2021-02-23] MEDS ORDERED: fentaNYL 100 MCG/2 ML INJ IV ONE (16:31)
[2021-02-23] MEDS ORDERED: ONDANSETRON 4 MG/2 ML INJ IV ONE (16:31)
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
[2021-02-23 16:52] LABS: Basophils % (Auto) 0.6 % (0.0-1.8); Eosinophils # (Auto) 0.1 K/mm3 (0.0-0.4); Eosinophils % (Auto) 1.9 % (0.0-4.3); Hemoglobin 12.2 gm/dl (10.1-14.3); Lymphocytes # (Auto) 1.5 K/mm3 (1.2-5.4); Lymphocytes % (Auto) 35.7 % (13.4-35.0); Mean Corpuscular HGB Conc 32 % (30-34); Mean Corpuscular Volume 94 fl (79-97); Monocytes # (Auto) 0.6 K/mm3 (0.0-0.8); Monocytes % (Auto) 14.6 % (0.0-7.3); Platelet Count 172 K/mm3 (140-440); Red Blood Count 4.04 M/mm3 (3.65-5.03); Red Cell Distribution Width 14.6 % (13.2-15.2)
[2021-02-23 17:16] LABS: Alanine Aminotransferase 15 units/L (7-56); Blood Urea Nitrogen 10 mg/dL (7-17); Calcium 8.4 mg/dL (8.4-10.2); Hemolysis Index 58
[2021-02-23 17:19] LABS: BUN/Creatinine Ratio 25
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
[2021-02-23 19:33] VITALS: BP 129/73
== END 2021-02-23 19:35 | disposition home or self-care (01) ==
LOC: ED 15:14
DX: S30.1XXA Contusion of abdominal wall, initial encounter (principal); V49.88XA Car occupant (driver) (passenger) injured in other specified transport accidents, initial encounter; Y93.89 Activity, other specified; Y92.89 Other specified places as the place of occurrence of the external cause; Y99.8 Other external cause status; Z79.899 Other long term (current) drug therapy
CPT/HCPCS: 36415; 74177; 80053; 83690; 84703; 85025; 96374; 96375; 99284; J2405; J3010; Q9967